=== PATIENT | female | born 1955 | race African-American/Black ===

== ENCOUNTER 2017-10-14 20:21 | Observation (INO) ==
[2017-10-15] MEDS ORDERED: Sod Chloride 0.9% Inj 1,000 ML IV.CONT SCH (01:15)
--- NOTE | 2017-10-15 01:26 | XR ---
EXAM DATE: 10/15/2017 1:21 AM EDT AGE/SEX: 62 years / Female INDICATIONS: Shortness of breath and vomiting for 2 days. CLINICAL DATA: This is the patient's initial encounter. Patient reports that signs and symptoms have been present for 2 days and indicates a pain score of 2/10. MEDICAL/SURGICAL HISTORY: None. None. COMPARISON: TLI, XR RIBS, BILATERAL, 05/28/2017. . FINDINGS: A single AP view of the chest demonstrates the lungs to be symmetrically aerated without evidence of mass, infiltrate or effusion. The cardiomediastinal contours are unremarkable. Osseous structures a re intact. CONCLUSION: Negative examination. Electronically signed by: Andreas Licona MD 10/15/2017 1:25 AM EDT
[2017-10-15 01:34] LABS: Baso # (Auto) 0.1 th/mm3 (0.0-0.2); Baso % (Auto) 0.4 % (0.0-2.0); Eos % (Auto) 0.1 % (0.0-4.0); Hematocrit 44.8 % (35.0-46.0); Hemoglobin 14.5 gm/dL (11.6-15.3); Lymph # (Auto) 2.3 th/mm3 (1.0-4.8); Lymph % (Auto) 17.5 % (9.0-44.0); Mean Corpuscular HGB Conc 32.4 % (32.0-36.0); Mean Corpuscular Hemoglobin 27.7 pg (27.0-34.0); Mean Corpuscular Volume 85.6 fL (80.0-100.0); Mean Platelet Volume 8.8 fL (7.0-11.0); Mono # (Auto) 0.6 th/mm3 (0.0-0.9); Mono % (Auto) 4.6 % (0.0-8.0); Neut # (Auto) 9.9 th/mm3 (1.8-7.7); Neut % (Auto) 77.4 % (16.0-70.0); Platelet Count 341 th/mm3 (150-450); Red Blood Count 5.24 mil/mm3 (4.00-5.30); Red Cell Distribution Width 14.1 % (11.6-17.2); White Blood Count 12.9 th/mm3 (4.0-11.0)
[2017-10-15 01:41] LABS: Activated Partial Thrombo Time 24.5 sec (24.3-30.1)
--- NOTE | 2017-10-15 01:47 | ED ---
HPI General Chief complaint: Nausea/Vomiting/Diarrhea Stated complaint: Vomiting Time Seen by Provider: 10/15/17 01:03 Source: patient Limitations: no limitations History of Present Illness HPI narrative: The patient is a 62 year old female who presents to the [facility] emergency department with a history of nausea and vomiting that began approximately 2 hours after starting a new diabetic medication. She reports that she administered Trulicity at approximately 3:30 PM for her diabetes on Saturday and around 6 PM she developed nausea with intractable vomiting. She reports that she has not been able to keep any liquids down including water. She denies having any diarrhea. Her last bowel movement was earlier today. She denies having any blood in her stool or black or tarry stools. She reports that she last checked her blood sugar last night and it was 96. She denies having any chest pain or shortness of breath, however she does report that since the onset of the nausea vomiting she developed sharp intermittent pains all throughout her body including in the midepigastric area. She denies having any dysuria, hematuria, urinary urgency, or frequency. On review of systems otherwise, she denies having known recent fevers, cough, congestion, neck pain, or neurologic symptoms. Related Data Home Medications Medication Instructions Recorded Confirmed dulaglutide [Trulicity] 1.5 mg SUB-Q QWEEK 10/15/17 10/15/17 fluoxetine 1 tab PO DAILY 10/15/17 10/15/17 lisinopril-hydrochlorothiazide 1 tab PO DAILY 10/15/17 10/15/17 ranitidine HCl 300 mg PO DAILY 10/15/17 10/15/17 rosuvastatin 40 mg PO DAILY 10/15/17 10/15/17 Allergies Allergy/AdvReac Type Severity Reaction Status Date / Time Sulfa (Sulfonamide Allergy Severe Swelling Verified 10/14/17 21:41 Antibiotics) Review of Systems ROS Unobtainable All other systems reviewed negative except as stated in HPI [facility] Medical History Medical History Diabetes mellitus (Acute) History of stroke (Acute) Hypercholesteremia (Acute) Hypertension (Acute) Irregular heart beat (Acute) MRSA (methicillin resistant Staphylococcus aureus) (Acute) Surgical History Surgical History History of bladder surgery (Acute) History of knee surgery (Acute) History of partial hysterectomy (Acute) History of shoulder surgery (Acute) History of tonsillectomy (Acute) Social History Social History Substance History: Active Abuse Second Hand Smoke Exposure: Yes Smoking Status: Current every day smoker Tobacco Type: Cigarettes How Often Do You Have a Drink Containing Alcohol: Monthly or less Recent Travel in [place] within the Last 8 Weeks: No Recent Out of Country Travel within the Last 8 Weeks: No Substance Abuse Detail Marijuana: Substance Use Status: Active Route Used Substance Abuse: Inhalation Reason for Use: Calm Down Immunization History Tetanus Immunization: <5 Years Hx Influenza Vaccine This Season: No Exam Const General: cooperative, no acute distress and well developed Nutritional Appearance: well nourished Orientation: alert, awake and oriented x3 HENMT Head: normocephalic and atraumatic Nose: no nasal discharge and no epistaxis Mouth: moist mucous membranes Throat: posterior oropharynx normal and uvula midline Eyes Sclera: normal sclerae Pupils: PERRL Neck Neck: trachea midline and no JVD Resp Effort & Inspection: no use of accessory muscles Auscultation: clear to auscultation bilaterally Cardio Rate: regular rate Rhythm: regular rhythm Heart Sounds: no murmurs GI Inspection: non-distended Palpation: soft, no hepatosplenomegaly and tender in the epigastrum; not in the LLQ, not in the RLQ, not in the LUQ, not in the RUQ, not at McBurney's point, not suprapubicly and Richardson's sign negative Auscultation: normal bowel sounds Back/Spine/Pelvis Back: no CVA tenderness Skin General: dry skin (warm) Neuro General: alert, awake and oriented x3 Cranial Nerves: other Speech: speech normal Motor: no movement abnormalities noted Extrem General: normal to inspection (No calf tenderness on palpation. 2+ pulses in all 4 extremities.), no clubbing, no cyanosis and edema (Trace pedal edema.) Laterality: bilaterally Psych Mood: congruent mood Affect: normal affect Judgment: judgment good Course Consultations Consultation #1: The patient's case including history, pertinent physical examination findings, and laboratory studies were discussed with Dr. Scott. It was agreed that the patient would be admitted to the hospitalist service. Initial Documented Vital Signs Temperature 98.9 F 10/14/17 21:41 Pulse Rate 78 10/14/17 21:41 Respiratory Rate 18 10/14/17 21:41 Blood Pressure 154/84 H 10/14/17 21:41 Pulse Oximetry 95 10/14/17 21:41 Last Documented Vital Signs Temperature 98.9 F 10/14/17 21:41 Pulse Rate 78 10/14/17 21:41 Respiratory Rate 18 10/14/17 21:41 Blood Pressure 154/84 H 10/14/17 21:41 Pulse Oximetry 95 10/14/17 21:41 Medical Decision Making MDM Narrative Medical decision making narrative: During the course of the patient's emergency department visit, the patient's history, examination, and differential diagnosis were reviewed with the patient. The patient was placed on a surveillance monitor with oximetry and frequent blood pressure monitoring. The patient had IV access obtained and blood work sent for analysis. Diagnostic evaluation was started regarding the patient's nausea and vomiting. The patient was initially provided normal saline IV fluid bolus, Zofran ODT. Diagnostic evaluation is remarkable for a white count of 12.9,neutrophil predominance of 77.4, platelets 341, hemoglobin 14.5, PT10, PTT 24.5, chemistries remarkable for troponin I of 0.06 which is elevated, total protein 8.5, CPK 594, glucose 128, GFR 44, creatinine 1.44, BUN 20, alk phos 135, lipase within normal limits, lactic acid within normal limits at 1.6. Urinalysis shows 2 urobilinogen, increased specific gravity suggesting dehydration, protein 100, few mucus, trace ketones also suggesting dehydration, moderate bacteria, culture indicated. The patient's chest x-ray showed no acute abnormality, CT scan of the abdomen and pelvis showed no acute abnormality , simple cyst of the right kidney, atherosclerosis, diverticulosis without diverticulitis. Given the patient's elevated troponin, the patient was started on nitroglycerin 1 inch the chest wall. The patient was given aspirin 324 mg p.o. 1. The patient will be admitted to the hospital for continued evaluation and treatment. The patient's results were discussed with the patient, including the plan of care. I explained that further testing and/ or monitoring is indicated based on the patient's history, examination, and/ or laboratory findings. Therefore, I recommended admission for additional evaluation. The patient expressed understanding and was agreeable with this plan. The patient was admitted to the hospital in stable condition and sent to a bed under the care of [facility] service. Differential Diagnosis Differential Diagnosis: Medication side effect, versus gastroparesis, versus vomiting disorder due to daily marijuana use, versus electrolyte derangements, versus dehydration, versus pancreatitis, versus ACS Medical Records Medical records reviewed: Yes I reviewed the patient's medical records. Lab Data Lab results reviewed: Yes I reviewed the patient's lab results. Result diagrams: 10/15/17 01:15 10/15/17 01:15 Lab Results 10/15/17 10/15/17 10/15/17 Range/Units 01:15 01:15 01:15 WBC (4.0-11.0) th/mm3 RBC (4.00-5.30) mil/mm3 Hgb (11.6-15.3) gm/dL Hct (35.0-46.0) % MCV (80.0-100.0) fL MCH (27.0-34.0) pg MCHC (32.0-36.0) % RDW (11.6-17.2) % Plt Count (150-450) th/mm3 MPV (7.0-11.0) fL Neut % (Auto) (16.0-70.0) % Lymph % (Auto) (9.0-44.0) % Brown % (Auto) (0.0-8.0) % Eos % (Auto) (0.0-4.0) % Baso % (Auto) (0.0-2.0) % Neut # (Auto) (1.8-7.7) th/mm3 Lymph # (Auto) (1.0-4.8) th/mm3 Brown # (Auto) (0.0-0.9) th/mm3 Eos # (Auto) (0.0-0.4) th/mm3 Baso # (Auto) (0.0-0.2) th/mm3 WBC Differential Differential Comment PT 10.0 (9.8-11.6) sec INR 1.0 Ratio APTT 24.5 (24.3-30.1) sec Sodium 138 (136-145) meq/L Potassium 3.9 (3.5-5.1) meq/L Chloride 100 (98-107) meq/L Carbon Dioxide 29.3 (21.0-32.0) meq/L Anion Gap 9 (5-15) meq/L BUN 20 H (7-18) mg/dL Creatinine 1.44 H (0.50-1.00) mg/dL Estimated GFR 44 L (>89) mL/min Random Glucose 128 H (74-106) mg/dL Lactic Acid 1.6 (0.4-2.0) mmol/L Calcium 9.7 (8.5-10.1) mg/dL Total Bilirubin 0.4 (0.2-1.0) mg/dL AST 27 (15-37) U/L ALT 42 (10-53) U/L Alkaline Phosphatase 135 H (45-117) U/L Total Creatine Kinase 594 H (26-192) U/L CK-MB (CK-2) 1.7 (0.5-3.6) ng/mL CK-MB (CK-2) % 0.3 (0.0-4.0) % Troponin I 0.06 H (0.02-0.05) ng/mL Total Protein 8.5 H (6.4-8.2) g/dL Albumin 4.3 (3.4-5.0) g/dL Lipase 268 (73-393) U/L Urine Color (Yellw/Straw) Urine Clarity (Clear) Urine pH (5.0-8.5) Ur Specific [place] (1.002-1.035) Urine Protein (Neg-Trace) mg/dL Urine Glucose (UA) (Negative) mg/dL Urine Ketones (Negative) mg/dL Urine Occult Blood (Negative) Urine Nitrate (Negative) Urine Bilirubin (Negative) Urine Urobilinogen (Less than 2) mg/dL Ur Leukocyte Esterase (Negative) Urine RBC (0-3) /hpf Urine WBC (0-5) /hpf Ur Squamous Epith Cells (0-5) /hpf Urine Bacteria (None) /hpf Hyaline Casts (0-3) /lpf Urine Mucus (Occasional) /lpf Micro UA Comment Urine Culture Comments 10/15/17 10/15/17 Range/Units 01:15 04:05 WBC 12.9 H (4.0-11.0) th/mm3 RBC 5.24 (4.00-5.30) mil/mm3 Hgb 14.5 (11.6-15.3) gm/dL Hct 44.8 (35.0-46.0) % MCV 85.6 (80.0-100.0) fL MCH 27.7 (27.0-34.0) pg MCHC 32.4 (32.0-36.0) % RDW 14.1 (11.6-17.2) % Plt Count 341 (150-450) th/mm3 MPV 8.8 (7.0-11.0) fL Neut % (Auto) 77.4 H (16.0-70.0) % Lymph % (Auto) 17.5 (9.0-44.0) % Brown % (Auto) 4.6 (0.0-8.0) % Eos % (Auto) 0.1 (0.0-4.0) % Baso % (Auto) 0.4 (0.0-2.0) % Neut # (Auto) 9.9 H (1.8-7.7) th/mm3 Lymph # (Auto) 2.3 (1.0-4.8) th/mm3 Brown # (Auto) 0.6 (0.0-0.9) th/mm3 Eos # (Auto) 0.0 (0.0-0.4) th/mm3 Baso # (Auto) 0.1 (0.0-0.2) th/mm3 WBC Differential . Differential Comment Auto diff final PT (9.8-11.6) sec INR Ratio APTT (24.3-30.1) sec Sodium (136-145) meq/L Potassium (3.5-5.1) meq/L Chloride (98-107) meq/L Carbon Dioxide (21.0-32.0) meq/L Anion Gap (5-15) meq/L BUN (7-18) mg/dL Creatinine (0.50-1.00) mg/dL Estimated GFR (>89) mL/min Random Glucose (74-106) mg/dL Lactic Acid (0.4-2.0) mmol/L Calcium (8.5-10.1) mg/dL Total Bilirubin (0.2-1.0) mg/dL AST (15-37) U/L ALT (10-53) U/L Alkaline Phosphatase (45-117) U/L Total Creatine Kinase (26-192) U/L CK-MB (CK-2) (0.5-3.6) ng/mL CK-MB (CK-2) % (0.0-4.0) % Troponin I (0.02-0.05) ng/mL Total Protein (6.4-8.2) g/dL Albumin (3.4-5.0) g/dL Lipase (73-393) U/L Urine Color Yellow (Yellw/Straw) Urine Clarity Clear (Clear) Urine pH 7.0 (5.0-8.5) Ur Specific [place] 1.054 H (1.002-1.035) Urine Protein 100 H (Neg-Trace) mg/dL Urine Glucose (UA) Negative (Negative) mg/dL Urine Ketones Trace H (Negative) mg/dL Urine Occult Blood Negative (Negative) Urine Nitrate Negative (Negative) Urine Bilirubin Negative (Negative) Urine Urobilinogen 2.0 H (Less than 2) mg/dL Ur Leukocyte Esterase Negative (Negative) Urine RBC 1 (0-3) /hpf Urine WBC 2 (0-5) /hpf Ur Squamous Epith Cells 2 (0-5) /hpf Urine Bacteria Moderate H (None) /hpf Hyaline Casts 1 (0-3) /lpf Urine Mucus Few H (Occasional) /lpf Micro UA Comment Culture indicated Urine Culture Comments Culture indicated Imaging Data Radiologist's impression: Chest X-Ray 10/15/17 01:04 CONCLUSION: Negative examination. Abdomen/Pelvis CT 10/15/17 02:58 CONCLUSION: 1. Simple cyst right kidney. 2. Atherosclerosis. 3. No acute findings. 4. Diverticulosis without diverticulitis. ECG Data Attestation: I personally reviewed and interpreted this ECG as follows: Interpretation: The patient had a EKG done on arrival that showed a sinus rhythm heart rate of 74, QRS duration is 79 ms, QTC [address] segment elevation. Discharge Plan Discharge Disposition Patient Disposition: 30 Still Patient Discharge Details Diagnosis: Dehydration, Elevated troponin I level, Chest pain, rule out acute myocardial infarction Physicians Team ED Provider: Sydney Pandya Primary Care Provider: Gregory Gifford Attending Provider: Taya Brand Status ED Status: Admitted Observation Patient
[2017-10-15 01:55] LABS: Alanine Aminotransferase 42 U/L (10-53); Albumin 4.3 g/dL (3.4-5.0); Anion Gap 9 meq/L (5-15); Aspartate Aminotransferase 27 U/L (15-37); Blood Urea Nitrogen 20 mg/dL (7-18); Calcium 9.7 mg/dL (8.5-10.1); Carbon Dioxide 29.3 meq/L (21.0-32.0); Chloride 100 meq/L (98-107); Glomerular Filtration Rate 44 mL/min (>89); Glucose,Random 128 mg/dL (74-106); Lipase 268 U/L (73-393); Potassium 3.9 meq/L (3.5-5.1); Sodium 138 meq/L (136-145)
[2017-10-15 01:58] LABS: Alkaline Phosphatase 135 U/L (45-117); Creatine Kinase 594 U/L (26-192); Total Protein 8.5 g/dL (6.4-8.2); Troponin I 0.06 ng/mL (0.02-0.05)
[2017-10-15 02:11] LABS: CKMB Percent 0.3 % (0.0-4.0); Creatine Kinase MB 1.7 ng/mL (0.5-3.6)
--- NOTE | 2017-10-15 04:01 | CT ---
EXAM DATE: 10/15/2017 3:31 AM EDT AGE/SEX: 62 years / Female INDICATIONS: Abdominal pain and vomiting. CLINICAL DATA: This is the patient's initial encounter. Patient reports that signs and symptoms have been present for 1 day and indicates a pain score of 6/10. MEDICAL/SURGICAL HISTORY: Cerebrovascular disease. Diabetes. Cardiovascular disease. Hyperte nsion Hysterectomy. Bladder surgery ORAL CONTRAST: No oral contrast ingested. RADIATION DOSE: 12.56 CTDI (mGy) COMPARISON: TLI, XR HIP AP AND LAT, LEFT, 11/27/2016. . TECHNIQUE: Multiple contiguous axial images were obtained through the abdomen and pelvis following b olus infusion of 96 ml Omnipaque 350 (iohexol) nonionic water-soluble contrast as a single exam dos e. No oral contrast ingested. Using automated exposure control and adjustment of the mA and/or kV ac cording to patient size, radiation dose was kept as low as reasonably achievable to obtain optimal di agnostic quality images. DICOM format image data is available electronically for review and comparis on. FINDINGS: Lung bases are clear. Osseous structures demonstrate degenerative changes of the spine. Liver, gallbl adder, spleen, pancreas, adrenals, left kidney unremarkable. 1.4 cm right midpole renal cyst. Atheros clerotic calcification of the aorta and iliac vessels. Urinary bladder unremarkable. The patient is s tatus post hysterectomy. There is diverticulosis of the sigmoid colon without evidence of diverticuli tis. Appendix normal. No free fluid or free air. Retroaortic left renal vein. CONCLUSION: 1. Simple cyst right kidney. 2. Atherosclerosis. 3. No acute findings. 4. Diverticulosis without diverticulitis. Electronically signed by: Andreas Licona MD 10/15/2017 4:00 AM EDT
[2017-10-15] MEDS ORDERED: Acetaminophen 325 MG Tablet PO PRN (04:19)
[2017-10-15] MEDS ORDERED: Temazepam 15 MG Capsule PO PRN (04:19)
[2017-10-15] MEDS ORDERED: Bisacodyl 10 MG Supp RECTAL PRN (04:19)
[2017-10-15 04:27] LABS: Bacteria,Urine Moderate /hpf; Bilirubin,Urine Negative (Negative); Clarity,Urine Clear (Clear); Color,Urine Yellow (Yellw/Straw); Glucose,Urine (UA) Negative (Negative); Hyaline Casts,Urine 1 /lpf (0-3); Leukocyte Esterase,Urine Negative (Negative); Mucus,Urine Few /lpf (Occasional); Nitrite,Urine Negative (Negative); Specific Gravity,Urine 1.054 (1.002-1.035); Squamous Epithelial Cell,Urine 2 /hpf (0-5)
[2017-10-15] MEDS: Heparin - SQ 10,000 UNITS/ML Vial SQ SCH ×3 (06:32→21:23)
[2017-10-15] MEDS: Sod Chloride 0.9% Inj 1,000 ML IV.CONT SCH (10:31)
[2017-10-15] MEDS: Senna/Docusate Sodium 8.6/50 MG Tablet PO SCH ×2 (10:31→21:24)
--- NOTE | 2017-10-15 13:04 | P.HP ---
History of Present Illness Primary Care Physician: Gregory Gifford Chief Complaint: nausea/vomiting History of Present Illness: 62-year-old female with history of DM, HTN, HLD, TIA 2, CVA, presents with a 2 day history of intractable nausea and vomiting. The patient reports that she was previously on Lantus 60 units at bedtime for her diabetes, however her hemoglobin A1c was 7.6 on her last visit, therefore her primary care changed her medication to Trulicity. She states she took her first dose of Trulicity on 10/13/17 around 3 PM. She states around 5 PM, she started with intractable nausea and vomiting that persisted throughout the night and into the next day. She reports at least 10 episodes of vomiting. She was not able to keep anything down. She also reports that she developed epigastric pain, described as pressure 7/10 pains. She states she felt like she could see a bulge in the epigastric region that was worse with any cough or sneeze. She denies any specific chest pains, shortness of breath, diaphoresis, or palpitations. She has no other medical complaints at this time. Review of Systems All other systems reviewed negative except as stated in HPI PMFSH - History History Provided By: Patient - Medical History Medical History: Medical History (Last Updated 10/15/17 @ 13:25 by Mary Kim) Diabetes mellitus History of stroke Hypercholesteremia Hypertension Irregular heart beat MRSA (methicillin resistant Staphylococcus aureus) Septic joint of right shoulder region - Surgical History Surgical History: Surgical History (Last Updated 10/15/17 @ 13:25 by Mary Kim) History of arthroscopic knee surgery History of bladder surgery History of knee surgery History of partial hysterectomy History of shoulder surgery History of tonsillectomy - Family History Family History: Family History (Last Updated 10/15/17 @ 13:26 by Mary Kim) Father Heart disease Prostate cancer - Tobacco History Second Hand Smoke Exposure: Yes Tobacco Use In Past 30 Days: Yes Smoking Status: Current every day smoker (less than 1/2 pack per day) Tobacco Type: Cigarettes - Alcohol History How Often Do You Have a Drink Containing Alcohol: Monthly or less (twice a year) - Substance Use History Substance History: Active Abuse - Substance Use Type Marijuana Status: Active (daily) Route Used: Inhalation Reason for Use: Calm Down - Travel History Recent Travel in the [facility] [place] Within the Last 8 Weeks: No Recent Travel Out of the Country Within the Last 8 Weeks: No - Immunization History Tetanus Immunization: <5 Years Hx Influenza Vaccine This Season: No Medications and Allergies Active Medications: Active Medications Acetaminophen (Tylenol) 650 mg PO Q4H PRN PRN Reason: Temp > 100.4 Al Hydroxide/Mg Hydroxide (Milk Of Magnesia Liq) 30 ml PO Q12H PRN PRN Reason: Mild Constipation Bisacodyl (Dulcolax Supp) 10 mg RECTAL DAILY PRN PRN Reason: SEVERE CONSITIPATION Heparin Sodium (Porcine) (Heparin Inj) 5,000 units SQ Q8H [facility] Last Admin: 10/15/17 06:32 Dose: 5,000 units Sodium Chloride (Ns Inj) 1,000 mls @ 100 mls/hr IV.CONT .Q10H [facility] Last Admin: 10/15/17 10:31 Dose: Not Given Lactulose (Lactulose Liq) 30 ml PO DAILY PRN PRN Reason: SEVERE CONSITIPATION Ondansetron HCl (Zofran Inj) 4 mg IV.PUSH Q6H PRN PRN Reason: NAUSEA OR VOMITING Senna/Docusate Sodium (Vani-Colace) 1 tab PO BID [facility] Last Admin: 10/15/17 10:31 Dose: Not Given Sennosides (Senokot) 17.2 mg PO Q12H PRN PRN Reason: Moderate Constipation Sodium Chloride (Ns Flush) 2 ml IV.FLUSH PRN PRN PRN Reason: FLUSH AFTER USING IV ACCESS Temazepam (Restoril) 15 mg PO HS PRN PRN Reason: INSOMNIA Allergies Allergy/AdvReac Type Severity Reaction Status Date / Time Sulfa (Sulfonamide Allergy Severe Swelling Verified 10/14/17 21:41 Antibiotics) Home Medications Medication Instructions Recorded Confirmed Type dulaglutide [Trulicity] 1.5 mg SUB-Q QWEEK 10/15/17 10/15/17 History fluoxetine 1 tab PO DAILY 10/15/17 10/15/17 History lisinopril-hydrochlorothiazide 1 tab PO DAILY 10/15/17 10/15/17 History ranitidine HCl 300 mg PO DAILY 10/15/17 10/15/17 History rosuvastatin 40 mg PO DAILY 10/15/17 10/15/17 History Exam Vital signs: Vital Signs 10/14/17 21:41 10/15/17 08:00 10/15/17 09:00 Temperature 98.9 F 97.7 F Pulse Rate 78 67 67 Respiratory Rate 18 18 14 Blood Pressure 154/84 H 116/65 124/68 Pulse Oximetry 95 95 10/15/17 09:30 10/15/17 12:00 Temperature Pulse Rate 67 64 Respiratory Rate 18 Blood Pressure 157/92 H Pulse Oximetry 99 Intake & Output 10/14/17 10/15/17 10/15/17 18:59 06:59 18:59 Weight 74.843 kg Narrative: GENERAL: Well-nourished, well-developed pleasant female patient in [facility]. SKIN: Warm and dry. No rash. HEAD: Normocephalic. Atraumatic. EYES: Pupils equal and round. No scleral icterus. No injection or drainage. ENT: No nasal bleeding or discharge. Mucous membranes pink and moist. NECK: Supple. Trachea midline. CARDIOVASCULAR: Regular rate and rhythm. No murmur appreciated. RESPIRATORY: No accessory muscle use. Clear to auscultation. Breath sounds equal bilaterally. GASTROINTESTINAL: Abdomen soft, non-tender, nondistended. Normoactive bowel sounds x4. MUSCULOSKELETAL: No obvious deformities. Extremities without clubbing, cyanosis , or edema. NEUROLOGICAL: Awake and alert. No obvious cranial nerve deficits. Motor grossly within normal limits. Normal speech. PSYCHIATRIC: Appropriate mood and affect; insight and judgment normal. Results - Labs CBC & Chem 7: 10/15/17 01:15 10/15/17 01:15 Labs: Laboratory Results - last 24 hr 10/15/17 10/15/17 10/15/17 01:15 01:15 01:15 WBC RBC Hgb Hct MCV MCH MCHC RDW Plt Count MPV Neut % (Auto) Lymph % (Auto) [place] % (Auto) Eos % (Auto) Baso % (Auto) Neut # (Auto) Lymph # (Auto) [place] # (Auto) Eos # (Auto) Baso # (Auto) WBC Differential Differential Comment PT 10.0 INR 1.0 APTT 24.5 Sodium 138 Potassium 3.9 Chloride 100 Carbon Dioxide 29.3 Anion Gap 9 BUN 20 H Creatinine 1.44 H Estimated GFR 44 L Random Glucose 128 H Lactic Acid 1.6 Calcium 9.7 Total Bilirubin 0.4 AST 27 ALT 42 Alkaline Phosphatase 135 H Total Creatine Kinase 594 H CK-MB (CK-2) 1.7 CK-MB (CK-2) % 0.3 Troponin I 0.06 H Total Protein 8.5 H Albumin 4.3 Lipase 268 Urine Color Urine Clarity Urine pH Ur Specific [place] Urine Protein Urine Glucose (UA) Urine Ketones Urine Occult Blood Urine Nitrate Urine Bilirubin Urine Urobilinogen Ur Leukocyte Esterase Urine RBC Urine WBC Ur Squamous Epith Cells Urine Bacteria Hyaline Casts Urine Mucus Micro UA Comment Urine Culture Comments 10/15/17 10/15/17 01:15 04:05 WBC 12.9 H RBC 5.24 Hgb 14.5 Hct 44.8 MCV 85.6 MCH 27.7 MCHC 32.4 RDW 14.1 Plt Count 341 MPV 8.8 Neut % (Auto) 77.4 H Lymph % (Auto) 17.5 [place] % (Auto) 4.6 Eos % (Auto) 0.1 Baso % (Auto) 0.4 Neut # (Auto) 9.9 H Lymph # (Auto) 2.3 [place] # (Auto) 0.6 Eos # (Auto) 0.0 Baso # (Auto) 0.1 WBC Differential . Differential Comment Auto diff final PT INR APTT Sodium Potassium Chloride Carbon Dioxide Anion Gap BUN Creatinine Estimated GFR Random Glucose Lactic Acid Calcium Total Bilirubin AST ALT Alkaline Phosphatase Total Creatine Kinase CK-MB (CK-2) CK-MB (CK-2) % Troponin I Total Protein Albumin Lipase Urine Color Yellow Urine Clarity Clear Urine pH 7.0 Ur Specific [place] 1.054 H Urine Protein 100 H Urine Glucose (UA) Negative Urine Ketones Trace H Urine Occult Blood Negative Urine Nitrate Negative Urine Bilirubin Negative Urine Urobilinogen 2.0 H Ur Leukocyte Esterase Negative Urine RBC 1 Urine WBC 2 Ur Squamous Epith Cells 2 Urine Bacteria Moderate H Hyaline Casts 1 Urine Mucus Few H Micro UA Comment Culture indicated Urine Culture Comments Culture indicated - Imaging Impressions Chest X-Ray 10/15/17 01:04 CONCLUSION: Negative examination. Abdomen/Pelvis CT 10/15/17 02:58 CONCLUSION: 1. Simple cyst right kidney. 2. Atherosclerosis. 3. No acute findings. 4. Diverticulosis without diverticulitis. Caprini VTE Risk Assessment Caprini VTE Risk Assessment: Moderate/High Risk (score >= 2) Caprini Risk Assessment Model: Point Value = 1 Point Value = 2 Point Value = 3 Point Value = 5 Age 41-60 Minor surgery BMI > 25 kg/m2 Swollen legs Varicose veins or History of unexplained or recurrent spontaneous Oral contraceptives or hormone replacement Sepsis (< 1 month) Serious lung disease, including pneumonia (< 1 month) Abnormal pulmonary function Acute myocardial infarction Congestive heart failure (< 1 month) History of inflammatory bowel disease Medical patient at bed rest Age 61-74 Arthroscopic surgery Major open surgery (> 45 min) Laparoscopic surgery (> 45 min) Malignancy Confined to bed (> 72 hours) Immobilizing plaster cast Central venous access Age >= 75 History of VTE Family history of VTE Factor V Leiden Prothrombin [id number] Lupus anticoagulant Anticardiolipin antibodies Elevated serum homocysteine Heparin-induced thrombocytopenia Other congenital or acquired thrombophilia Stroke (< 1 month) Elective arthroplasty Hip, pelvis, or leg fracture Acute spinal cord injury (< 1 month) Prophylaxis Regimen: Total Risk Factor Score Risk Level Prophylaxis Regimen 0-1 Low Early ambulation 2 Moderate Order ONE of the following: *Sequential Compression Device (SCD) *Heparin 5000 units SQ BID 3-4 Higher Order ONE of the following medications: *Heparin 5000 units SQ TID *Enoxaparin/Lovenox 40 mg SQ daily (WT < 150 kg, CrCl > 30 mL/min) *Enoxaparin/Lovenox 30 mg SQ daily (WT < 150 kg, CrCl > 10-29 mL/min) *Enoxaparin/Lovenox 30 mg SQ BID (WT < 150 kg, CrCl > 30 mL/min) AND/OR *Sequential Compression Device (SCD) 5 or more Highest Order ONE of the following medications: *Heparin 5000 units SQ TID (Preferred with Epidurals) *Enoxaparin/Lovenox 40 mg SQ daily (WT < 150 kg, CrCl > 30 mL/min) *Enoxaparin/Lovenox 30 mg SQ daily (WT < 150 kg, CrCl > 10-29 mL/min) *Enoxaparin/Lovenox 30 mg SQ BID (WT < 150 kg, CrCl > 30 mL/min) AND *Sequential Compression Device (SCD) Assessment and Plan - Plan 62-year-old female with history of DM, HTN, HLD, TIA 2, CVA, presents with a 2 day history of intractable nausea and vomiting. Nausea/vomiting: Suspect medication reaction to Trulicity. -CT abdomen/pelvis reviewed, no acute findings, shows diverticulosis without diverticulitis -Lipase wnl -Supportive treatment with IVF, antiemetics, and pain control as needed -Symptoms improving Elevated troponin: No complaints of chest pain, however with atypical epigastric pains. Patient with risk for heart disease with history of diabetes, tobacco use, hypertension, and hyperlipidemia. -Troponin 0.06 upon arrival. Continue to trend serial cardiac enzymes and EKGs -Given aspirin and nitro ointment -Will consider nuclear stress test depending on second set of cardiac enzymes -Monitor on telemetry NERI: Cr 1.44, suspect secondary to dehydration with intractable N/V -Given IV fluid hydration -Hold patient's lisinopril/HCTZ -Avoid nephrotoxins -Monitor BMP Hypertension: Chronic -Holding patient's lisinopril/HCTZ due to AK I -Clonidine as needed -Monitor BP, adjust antihypertensives as needed Hyperlipidemia: Chronic -continue patient's statin All other medical conditions stable, continue home medications as appropriate. DVT Prophylaxis: Heparin sq
[2017-10-15 14:29] LABS: Troponin I 0.1 ng/mL (0.02-0.05)
[2017-10-15 14:42] LABS: CKMB Percent 0.2 % (0.0-4.0); Creatine Kinase MB 2.2 ng/mL (0.5-3.6)
[2017-10-15 20:35] LABS: Troponin I 0.12 ng/mL (0.02-0.05)
[2017-10-15 20:47] LABS: CKMB Percent 0.2 % (0.0-4.0); Creatine Kinase MB 2.5 ng/mL (0.5-3.6)
[2017-10-15] MEDS ORDERED: Famotidine 20 MG Tablet PO SCH (21:00)
--- NOTE | 2017-10-15 23:13 | ECG ---
Date Performed: 10/15/2017 Time Performed: 06:14:10 PTAGE: 62 years EKG: Sinus rhythm NORMAL ECG PREVIOUS TRACING : 10/15/2017 04.16 DOCTOR: Brady Olivares Interpretating Date/Time 10/15/2017 23:11:42
[2017-10-16] MEDS: Heparin - SQ 10,000 UNITS/ML Vial SQ SCH ×2 (06:22→15:25)
[2017-10-16 07:56] LABS: Baso % (Auto) 0.4 % (0.0-2.0); Eos # (Auto) 0.1 th/mm3 (0.0-0.4); Eos % (Auto) 1.6 % (0.0-4.0); Hematocrit 39.6 % (35.0-46.0); Hemoglobin 13.1 gm/dL (11.6-15.3); Lymph # (Auto) 2.1 th/mm3 (1.0-4.8); Lymph % (Auto) 26.5 % (9.0-44.0); Mean Corpuscular HGB Conc 33.2 % (32.0-36.0); Mean Corpuscular Hemoglobin 29.1 pg (27.0-34.0); Mean Corpuscular Volume 87.9 fL (80.0-100.0); Mean Platelet Volume 8.9 fL (7.0-11.0); Mono # (Auto) 0.7 th/mm3 (0.0-0.9); Mono % (Auto) 9.1 % (0.0-8.0); Neut # (Auto) 4.9 th/mm3 (1.8-7.7); Neut % (Auto) 62.4 % (16.0-70.0); Platelet Count 266 th/mm3 (150-450); Red Blood Count 4.51 mil/mm3 (4.00-5.30); Red Cell Distribution Width 14.2 % (11.6-17.2); White Blood Count 7.9 th/mm3 (4.0-11.0)
[2017-10-16 08:30] LABS: Alanine Aminotransferase 36 U/L (10-53); Albumin 3.5 g/dL (3.4-5.0); Alkaline Phosphatase 108 U/L (45-117); Anion Gap 9 meq/L (5-15); Aspartate Aminotransferase 36 U/L (15-37); Blood Urea Nitrogen 20 mg/dL (7-18); Calcium 8.9 mg/dL (8.5-10.1); Chloride 102 meq/L (98-107); Glomerular Filtration Rate 59 mL/min (>89); Glucose,Random 114 mg/dL (74-106); Potassium 3.7 meq/L (3.5-5.1); Sodium 140 meq/L (136-145); Total Protein 7.1 g/dL (6.4-8.2)
[2017-10-16] MEDS ORDERED: Famotidine 20 MG Tablet PO SCH (09:00)
[2017-10-16] MEDS ORDERED: FLUoxetine 20 MG Capsule PO SCH (09:00)
[2017-10-16 09:04] LABS: Chol/HDL Ratio 4.48 Ratio
[2017-10-16] MEDS ORDERED: Dextrose 50% in Water 50 ML Vial IV.PUSH PRN (09:17)
[2017-10-16 09:20] LABS: CKMB Percent 0.2 % (0.0-4.0); Creatine Kinase MB 2.2 ng/mL (0.5-3.6)
[2017-10-16] MEDS ORDERED: Lisinopril 10 MG Tablet PO SCH (09:30)
[2017-10-16] MEDS: Sod Chloride 0.9% Inj 1,000 ML IV.CONT SCH ×2 (11:26→11:30)
[2017-10-16] MEDS: Senna/Docusate Sodium 8.6/50 MG Tablet PO SCH (11:32)
[2017-10-16] MEDS ORDERED: Insulin NovoLOG Aspart Correctional Sugar Inj SQ SCH (12:00)
[2017-10-16] MEDS ORDERED: Regadenoson Inj 0.4 MG/5 ML Syringe IV.PUSH ONE (13:59)
--- NOTE | 2017-10-16 15:20 | NM ---
EXAM DATE: 10/16/2017 3:09 PM EDT AGE/SEX: 62 years / Female INDICATIONS:. . Angina. CLINICAL DATA: This is the patient's subsequent encounter. Patient reports that signs and symptoms h ave been present for 1 day and indicates a pain score of 7/10. MEDICAL/SURGICAL HISTORY: Diabetes. Stroke. Hypertension. Hypercholesteremia. Irregular hear t beat. History of MRSA. Septic joint of right shoulder region. Arthroscopy. Hysterectomy. Tonsill ectomy. Bladder surgery. Shoulder surgery. Arthroscopic knee surgery. COMPARISON: No prior exams available for comparison. DOSE: 8.5 mCi Tc 99m Myoview at rest 25.4 mCi [id number] at stress 0.4 mg Lexiscan STRESS SYMPTOMS: Dyspnea and weird feeling. EJECTION FRACTION: 54 % TECHNIQUE: The patient underwent pharmacologic stress with infusion of prescribed dose. Continuous ECG tracing was monitored during stress. Gated SPECT imaging was performed after stress and conventi onal SPECT imaging was performed at rest. The examination was performed on a SPECT/CT scanner, both attenuation and non-corrected datasets were reviewed. FINDINGS: Distribution: The maximum perfused segment at stress is in the anterior lateral wall. Perfusion Study: The pattern of perfusion at stress is within normal limits. Gated Study: There are intact wall motion and wall thickening without hypokinetic or dyskinetic segm ents. The ejection fraction is calculated at 54%. RISK CATEGORY: Low (<1% Annual Motality Rate) CONCLUSION: 1. Normal wall motion and calculated ejection fraction. 2. No fixed or reversible wall defect to suggest acute ischemia or infarction. Electronically signed by: Shane Flood MD 10/16/2017 3:18 PM EDT
[2017-10-16 16:50] VITALS: BP 186/97; PULSE 62; RESP 16; TEMP 98.4; O2SAT 97
--- NOTE | 2017-10-16 17:28 | P.PN ---
Subjective Interval history: Follow-up for nausea/vomiting, elevated troponins. Patient reports feeling much better today. She denies any further nausea or vomiting. Denies any diarrhea. She is tolerating oral intake. She denies any chest pain or shortness breath. She wants to go home. She states she plans on going back on her Lantus 60 units at bedtime and stopping the tuberosity. She states she is going to follow-up with her endocrinology office as soon as possible. Discussed the results of her urine culture, patient does endorse some occasional dysuria. Denies fevers or chills. Physical Exam Vital signs: Vital Signs 10/15/17 20:00 10/16/17 00:00 10/16/17 04:00 Temperature 97.6 F 98.1 F 98 F Pulse Rate 64 70 71 Respiratory Rate 18 18 18 Blood Pressure 176/76 H 162/89 H 149/82 H Pulse Oximetry 96 93 L 95 10/16/17 07:45 10/16/17 08:00 10/16/17 11:24 Temperature 98.5 F Pulse Rate 63 59 L Respiratory Rate 16 Blood Pressure 134/68 Pulse Oximetry 94 L 98 10/16/17 12:00 10/16/17 16:00 Temperature 98.5 F 98.4 F Pulse Rate 64 62 Respiratory Rate 14 16 Blood Pressure 135/94 H 186/97 H Pulse Oximetry 96 97 Intake & Output 10/15/17 10/16/17 10/16/17 18:59 06:59 18:59 Intake Total 780 / 780 Balance 780 / 780 Intake: IV 200 / 200 NS Inj 1,000 ML @ 100 mls/hr IV 200 / 200 .CONT .Q10H CLAUDIA Rx#:[id number] Oral 580 / 580 Other: # Voids 2 Date of Last Bowel Movement 10/14/17 Narrative: GENERAL: Well-nourished, well-developed pleasant middle-age female patient in [facility]. SKIN: Warm and dry. No rash. HEENT: Normocephalic. Atraumatic. Pupils equal and round. Mucous membranes pink and moist. NECK: Supple. Trachea midline. CARDIOVASCULAR: Regular rate and rhythm. No murmur appreciated. RESPIRATORY: No accessory muscle use. Clear to auscultation. Breath sounds equal bilaterally. GASTROINTESTINAL: Abdomen soft, non-tender, nondistended. Normoactive bowel sounds x4. MUSCULOSKELETAL: No obvious deformities. Extremities without clubbing, cyanosis , or edema. NEUROLOGICAL: Awake and alert. No obvious cranial nerve deficits. Motor grossly within normal limits. Moving all extremities spontaneously. Normal speech. PSYCHIATRIC: Appropriate mood and affect; insight and judgment normal. Results - Labs CBC & Chem 7: 10/16/17 07:29 10/16/17 07:29 Laboratory Results - last 24 hr 10/15/17 10/15/17 10/16/17 04:05 19:36 07:29 WBC 7.9 RBC 4.51 Hgb 13.1 Hct 39.6 MCV 87.9 MCH 29.1 MCHC 33.2 RDW 14.2 Plt Count 266 MPV 8.9 Neut % (Auto) 62.4 Lymph % (Auto) 26.5 [place] % (Auto) 9.1 H Eos % (Auto) 1.6 Baso % (Auto) 0.4 Neut # (Auto) 4.9 Lymph # (Auto) 2.1 [place] # (Auto) 0.7 Eos # (Auto) 0.1 Baso # (Auto) 0.0 WBC Differential . Differential Comment Auto diff final Sodium Potassium Chloride Carbon Dioxide Anion Gap BUN Creatinine Estimated GFR POC Glucose Random Glucose Calcium Total Bilirubin AST ALT Alkaline Phosphatase Total Creatine Kinase 1051 H CK-MB (CK-2) 2.5 CK-MB (CK-2) % 0.2 Troponin I 0.12 H Total Protein Albumin Triglycerides Cholesterol LDL Cholesterol, Calc HDL Cholesterol Cholesterol/HDL Ratio Urine Color Yellow Urine Clarity Clear Urine pH 7.0 Ur Specific [place] 1.054 H Urine Protein 100 H Urine Glucose (UA) Negative Urine Ketones Trace H Urine Occult Blood Negative Urine Nitrate Negative Urine Bilirubin Negative Urine Urobilinogen 2.0 H Ur Leukocyte Esterase Negative Urine RBC 1 Urine WBC 2 Ur Squamous Epith Cells 2 Urine Bacteria Moderate H Hyaline Casts 1 Urine Mucus Few H Micro UA Comment Culture indicated Urine Culture Comments Culture indicated 10/16/17 10/16/17 10/16/17 07:29 07:29 09:30 WBC RBC Hgb Hct MCV MCH MCHC RDW Plt Count MPV Neut % (Auto) Lymph % (Auto) [place] % (Auto) Eos % (Auto) Baso % (Auto) Neut # (Auto) Lymph # (Auto) [place] # (Auto) Eos # (Auto) Baso # (Auto) WBC Differential Differential Comment Sodium 140 Potassium 3.7 Chloride 102 Carbon Dioxide 29.0 Anion Gap 9 BUN 20 H Creatinine 1.12 H Estimated GFR 59 L POC Glucose 115 H Random Glucose 114 H Calcium 8.9 D Total Bilirubin 0.4 AST 36 ALT 36 Alkaline Phosphatase 108 Total Creatine Kinase 967 H CK-MB (CK-2) 2.2 CK-MB (CK-2) % 0.2 Troponin I Total Protein 7.1 D Albumin 3.5 D Triglycerides 255 H Cholesterol 193 LDL Cholesterol, Calc 99 HDL Cholesterol 43.0 Cholesterol/HDL Ratio 4.48 Urine Color Urine Clarity Urine pH Ur Specific [place] Urine Protein Urine Glucose (UA) Urine Ketones Urine Occult Blood Urine Nitrate Urine Bilirubin Urine Urobilinogen Ur Leukocyte Esterase Urine RBC Urine WBC Ur Squamous Epith Cells Urine Bacteria Hyaline Casts Urine Mucus Micro UA Comment Urine Culture Comments Microbiology 10/15/17 04:05 Clean Catch Urine Urine Culture - Preliminary Group B beta Strep - Imaging Impressions Myocardial Perfusion Scan Nuc Med 10/16/17 00:00 CONCLUSION: 1. Normal wall motion and calculated ejection fraction. 2. No fixed or reversible wall defect to suggest acute ischemia or infarction. Assessment and Plan - Plan 62-year-old female with history of DM, HTN, HLD, TIA 2, CVA, presents with a 2 day history of intractable nausea and vomiting. Nausea/vomiting: Suspect medication reaction to Trulicity. -CT abdomen/pelvis reviewed, no acute findings, shows diverticulosis without diverticulitis -Lipase wnl -Supportive treatment with IVF, antiemetics, and pain control as needed -Symptoms resolved, tolerating oral intake, stable for discharge Elevated troponin: No complaints of chest pain, however with atypical epigastric pains. Patient with risk for heart disease with history of diabetes, tobacco use, hypertension, and hyperlipidemia. -Troponins elevated, but flat at 0.06, 0.10, 0.12. EKG without acute ischemic changes. -Given aspirin and nitro ointment -Monitor on telemetry -Checked nuclear stress test which was unremarkable -No complaints of chest pain, stable for discharge. NERI: Cr 1.44, suspect secondary to dehydration with intractable N/V -Given IV fluid hydration -Held patient's lisinopril/HCTZ -Avoid nephrotoxins -Monitor BMP, improved, creatinine 1.12 today -Patient reports history of CKD stage III, appears close to her baseline, outpatient follow-up Hypertension: Chronic -Initially held patient's lisinopril/HCTZ due to NERI -Clonidine as needed -Monitor BP, adjust antihypertensives as needed -NERI improved, restarted patient's home meds Hyperlipidemia/hypertriglyceridemia: Chronic -continue patient's statin -Educated on lifestyle modifications UTI: Acute -Preliminary urine culture with group B strep -Started on Keflex 500 mg po bid x7days Diabetes mellitus: Chronic. Reportedly recent outpatient hemoglobin A1c 7.6. -Discontinued Trulicity secondary to adverse reaction as above -Monitor Accu-Cheks and cover with sliding scale insulin -Blood glucoses very well controlled -Instructed the patient to continue taking her Lantus 60 units at bedtime upon discharge, and follow-up with her outpatient psychiatric np All other medical conditions stable, continue home medications as appropriate. DVT Prophylaxis: Heparin sq Discharge Planning: Discharge patient to home Condition on discharge: Stable Heart healthy/diabetic diet as tolerated Ad Sunita activity Rx written: Keflex 500 mg p.o. bid 7 days Follow-up with primary care physician and psychiatric np
--- NOTE | 2017-10-16 22:31 | ECG ---
Date Performed: 10/15/2017 Time Performed: 19:16:38 PTAGE: 62 years EKG: SINUS BRADYCARDIA POSSIBLE RIGHT VENTRICULAR CONDUCTION DELAY SEPTAL MYOCARDIAL INFARCTION ABNORMAL ECG PREVIOUS TRACING : 10/15/2017 06.14 Since the previous tracing, no significant change noted DOCTOR: Roque Hill Interpretating Date/Time 10/16/2017 22:27:33
== END 2017-10-16 18:38 | disposition home or self-care (01) ==
LOC: NEDA 20:21 → NEPHCDU 20:21 → NEPC 20:21 → NEDH 10-15 05:41 → NEPHCDU 10-15 08:24
PROVIDERS: ADMIT Hospitalist; ATTEND Hospitalist